=== PATIENT | male | born 1995 | race Caucasian/White ===

== ENCOUNTER 2017-08-13 17:44 | Emergency (ER) | payer SELFPAY ==
[2017-08-13 17:46] VITALS: BP 114/56; PULSE 69; RESP 16; TEMP 98.6; O2SAT 98
--- NOTE | 2017-08-13 18:08 | PD ---
HPI Chief Complaint: Injury Time Seen by Provider: 18:05 Travel History International Travel<30 days: No Contact w/Intl Traveler<30days: No Traveled to known affect area: No History of Present Illness HPI 22-year-old male presents for evaluation of right knee pain. He reports that he was just beginning to go on a run and he has only run for a few feet when he felt a pain to his medial right knee. Pain is an aching pain which is mild and worse when walking. He denies twisting his knee. He denies falling. He is concerned because he has a history of right meniscus repair 7-8 months ago in [place] and he was concerned that he may have reinjured it today. He has no other complaints at this time. History Social History Alcohol Use: No Tobacco Use: No Review of Systems Musculoskeletal: Positive: Pain, No: Limited ROM, Edema Skin: Positive Other (denies open wounds) Physical Exam Narrative GENERAL: Well-developed well-nourished male in no acute distress SKIN: Warm and dry. CARDIOVASCULAR: Regular rate and rhythm. No murmur appreciated. RESPIRATORY: No accessory muscle use. Clear to auscultation. Breath sounds equal bilaterally. MUSCULOSKELETAL: No obvious deformities. There is no reproducible tenderness to palpation of the right knee. There is no joint effusion. The patient is able to ambulate with no gait disturbance. There is no obvious laxity on valgus /varus/anterior/posterior stress. 2+ dorsalis pedis pulse. NEUROLOGICAL: Awake and alert. No obvious cranial nerve deficits. Motor grossly within normal limits. Normal speech. Data Data Last Documented VS Vital Signs Date Time Temp Pulse Resp B/P (MAP) Pulse Ox O2 Delivery O2 Flow Rate FiO2 08/13/17 17:46 98.6 69 16 114/56 (23) 98 MDM Medical Screen Exam Complete: Yes Emergency Medical Condition: No Narrative Course Physical examination is reassuring. There is no emergent indication for MRI imaging of the right knee at this point in time. The patient may benefit from outpatient MRI imaging of the right knee to assess the stability of his meniscus. A medical screening exam was performed: At the time of evaluation the presenting medical condition was determined not to be of an emergent nature. The patient was given the option of receiving additional care, but declined. Patient was given options for additional community resources from which to obtain care. The Patient Has Been advised to seek medical attention for their presenting complaint. The patient has been advised to return to the ER at any time if an emergent condition develops. Primary Impression: Encounter for medical screening examination Rakan Watkins Aug 13, 2017 18:07
== END 2017-08-13 18:10 | disposition left against medical advice (07) ==
LOC: NEPK 17:44
DX: M25.561 Pain in right knee (principal)
CPT/HCPCS: 99281